=== PATIENT | male | born 1960 | race Caucasian/White ===

== ENCOUNTER 2016-10-27 22:09 | Emergency (ER) | payer BC ==
[~2016-10-27] VITALS: Ht 182.9 cm; Wt 95.8 kg
[2016-10-27] MEDS ORDERED: VITAMIN E100 UNIT PO (23:04)
[2016-10-27] MEDS ORDERED: FISH OIL 1,0001 EAC7 PO (23:04)
[2016-10-27] MEDS ORDERED: CALCIUM/MAGNESIUM PO (23:05)
[2016-10-27 23:25] LABS: HEMATOCRIT 41.2 % (38.0-50.0); MCH 34.2 PG (29.0-34.0); MCHC 36.4 G/DL (30.0-36.0); MCV 93.8 FL (86-99); MEAN PLAT.VOLUME 9.5 uM^3 (9.0-12.4); PLATELET COUNT 197 K/uL (156-360); RBC DIS.WIDTH-CV 11.4 % (11.8-14.6); RBC DIS.WIDTH-SD 39.3 % (39-53); RED BLOOD COUNT 4.39 M/uL (4.00-5.50); WHITE BLOOD COUNT 6.7 K/uL (4.1-10.2)
[2016-10-27 23:36] LABS: CHLORIDE 106 mEq/L (99-109); POTASSIUM 3.5 mEq/L (3.7-5.4); SODIUM 141 mEq/L (136-147)
[2016-10-27 23:37] LABS: GLUCOSE 103 mg/dL (70-99)
[2016-10-27 23:39] LABS: ANION GAP 14 MEQ/L (2-14)
[2016-10-27 23:41] LABS: GFR ESTIMATE (CALCULATED) > 59 mL/min/
[2016-10-27 23:42] LABS: UREA NITROGEN (BUN) 18 mg/dL (9-23)
[2016-10-27 23:46] LABS: TROP-I INTERPRETATION NEGATIVE; TROPONIN-I < 0.01 ng/mL (0.0-0.30)
[2016-10-28 02:24] LABS: TROP-I INTERPRETATION NEGATIVE; TROPONIN-I < 0.01 ng/mL (0.0-0.30)
[2016-10-28 03:30] VITALS: BP 153/82
== END 2016-10-28 03:31 | disposition home or self-care (01) ==
LOC: EME 22:09
PROVIDERS: Emergency Medicine
DX: R07.9 Chest pain, unspecified (principal); R51 Headache; I10 Essential (primary) hypertension; R20.0 Anesthesia of skin; M25.512 Pain in left shoulder; R11.0 Nausea; R06.02 Shortness of breath; Z87.891 Personal history of nicotine dependence; Z82.49 Family history of ischemic heart disease and other diseases of the circulatory system
CPT/HCPCS: 70450; 71020; 80048; 84484; 85027; 93005; 99281; 99284